=== PATIENT | male | born 1945 | race Caucasian/White ===

== ENCOUNTER 2017-11-20 05:54 | Day surgery (SDC) | payer OTHER ==
[~2017-11-20] VITALS: Ht 162.6 cm; Wt 54.5 kg
[2017-11-20] MEDS ORDERED: LIDOCAINE HCL 2% 5 ML JELLY TP ONE (05:55)
[2017-11-20] MEDS ORDERED: LIDOCAINE HCL 2% 30 ML JELLY TP ONE (05:55)
[2017-11-20] MEDS ORDERED: LIDOCAINE HCL 4% 50 ML SOLUTION TP ONE (05:55)
[2017-11-20] MEDS ORDERED: BENZOCAINE 20% 50 MCG/SPRAY 57 GM TP ONE (05:55)
[2017-11-20] MEDS ORDERED: ALBUTEROL SULFATE 2.5 MG/0.5 ML NEB SOLUTION NEB ONE (05:55)
[2017-11-20] MEDS ORDERED: SODIUM CHLORIDE 0.9% 1,000 ML IV ONE ×2 (06:16→07:00)
[2017-11-20] MEDS ORDERED: FLUT16H NASAL (06:27)
[2017-11-20] MEDS ORDERED: AMLO-511 PO (06:27)
[2017-11-20] MEDS ORDERED: ATOR40TA28 PO (06:27)
[2017-11-20] MEDS ORDERED: ALBU8.5H8 IH (06:27)
[2017-11-20] MEDS ORDERED: BUPR100T5 PO (06:27)
[2017-11-20] MEDS ORDERED: FentaNYL CITRATE-PF 100 MCG/2 ML VIAL ONE (07:54)
[2017-11-20] MEDS ORDERED: MIDAZOLAM HCL 2 MG/2 ML VIAL ONE (07:54)
[2017-11-20] MEDS ORDERED: MethylPREDNISolone SOD SUCC 125 MG/2 ML VIAL IVP ONE (08:30)
[2017-11-20] MEDS ORDERED: MethylPREDNISolone SOD SUCC 125 MG/2 ML VIAL ONE (09:17)
[2017-11-20] MEDS ORDERED: OXYGEN THERAPY IH SCH (20:00)
== END 2017-11-20 10:55 | disposition home or self-care (01) ==
LOC: SURGERY 05:54
PROVIDERS: ATTEND Internal Medicine Critical Care Medicine
DX: J38.4 Edema of larynx (principal); B37.0 Candidal stomatitis; J44.9 Chronic obstructive pulmonary disease, unspecified; I10 Essential (primary) hypertension; E78.00 Pure hypercholesterolemia, unspecified; Z87.891 Personal history of nicotine dependence; Z79.899 Other long term (current) drug therapy
CPT/HCPCS: 31623; 31624; 71045; 87015; 87070; 87107; 87147; 87205; 87220; 88108; 88312; J2250; J2930; J3010; J7030